=== PATIENT | male | born 1970 | race American Indian/Alaskan Native ===

== ENCOUNTER 2019-03-31 14:30 | Emergency (ER) | payer SELFPAY ==
--- NOTE | 2019-03-31 14:46 | Emergency Department Report ---
Blank Doc - Documentation Documentation: 48-year-old male that presents with dysuria and penile discharge This initial assessment/diagnostic orders/clinical plan/treatment(s) is/are subject to change based on patient's health status, clinical progression and re- assessment by fellow clinical providers in the ED. Further treatment and workup at subsequent clinical providers discretion. Patient/guardians urged not to elope from the ED as their condition may be serious if not clinically assessed and managed. Initial orders include: 1- Patient sent to [facility] for further evaluation and treatment 2- GC/UA
[2019-03-31 14:47] VITALS: BP 175/113
[2019-03-31 15:18] LABS: Bilirubin,Urine NEG (Negative); Blood,Urine SM (Negative); Color,Urine Yellow (Yellow); Protein,Urine <15 mg/dL mg/dL (Negative); Urobilinogen,Urine < 2.0 mg/dL (<2.0)
--- NOTE | 2019-03-31 19:36 | Emergency Department Report ---
Chief Complaint: Urogenital-Male Stated Complaint: STD/GENTIALS AREA GOMEZ Time Seen by Provider: 03/31/19 14:44 - HPI History of Present Illness: 48-year-old -Malag[place] male presents to the emergency room complaining of penile discharge and tingling when he urinates. Patient reports he is sexually active 10 women in the last month unprotected. Patient reports he has a past medical history of hypertension. Patient denies any fever chills no abdominal pain no nausea no vomiting no chest pain shortness of breathing. Patient denies any testicular pain testicular swelling no blood in the urine - ROS Review of Systems: See HPI - Exam Vital Signs: Vital Signs 03/31/19 14:44 Temperature 98.5 F Pulse Rate 94 H Respiratory 15 Rate Blood Pressure 175/113 [Left] O2 Sat by Pulse 97 Oximetry Physical Exam: Patient is alert and oriented 3 no acute distress nontoxic in appearance. MSE screening note: Focused history and physical exam performed. Due to findings the following was ordered: Discussed with patient that he needs to follow up at the health department for complete STD screening and treatment. Discussed with patient that he has glucose in his urine and he needs to follow-up with the primary care provider. Patient be referred to [facility]. ED Medical Decision Making - Medical Decision Making 48-year-old -Malag[place] male presents to the emergency room complaining of penile discharge and tingling when he urinates. Patient reports he is sexually active 10 women in the last month unprotected. Patient reports he has a past medical history of hypertension. Patient denies any fever chills no abdominal pain no nausea no vomiting no chest pain shortness of breathing. Discussed patient he needs to follow up at the health department for complete STD screening and testing. I also discussed with patient that he needs to follow up with her primary care provider for further evaluation of glucose in urine ED Disposition for MSE Clinical Impression: Penile discharge Disposition: Z- MED SCREENING EXAM-LEFT Is pt being admited?: No Does the pt Need Aspirin: No Condition: Stable Additional Instructions: Follow-up at the health department for complete STD screening and testing and treatment. Follow-up with outside Medical Center for evaluation of glucose in the urine. Referrals: PRIMARY CARE, [Primary Care Provider] - 3-5 Days [facility] [Outside] - 3-5 Days [facility] [Outside] - 3-5 Days [facility] [Outside] - 3-5 Days [facility] [Outside] - 3-5 Days [facility] [Outside] - 3-5 Days
== END 2019-03-31 19:44 | disposition left against medical advice (07) ==
LOC: ED 14:30
DX: R36.9 Urethral discharge, unspecified (principal); I10 Essential (primary) hypertension
CPT/HCPCS: 81001; 87086

== ENCOUNTER 2021-06-16 02:30 | Emergency (ER) | payer SELFPAY ==
--- NOTE | 2021-06-16 03:14 | Emergency Department Report ---
ED Chest Pain HPI - General Chief Complaint: Chest Pain Stated Complaint: CHEST PAIN Time Seen by Provider: 06/16/21 03:00 Source: patient Mode of arrival: Ambulatory Limitations: No Limitations - History of Present Illness Initial Comments: 51-year-old male, history of diabetes, hypertension, renal insufficiency, presents to ED with chest pain x3 days. Patient states pain is right-sided, worse with cough and also with exertion. Patient reports associated shortness of breath. Patient denies any pleuritic pain. He denies any nausea or vomiting, diaphoresis, leg pain or swelling. Patient denies fever. Patient reports tobacco and alcohol use. States he stopped smoking cigarettes 2 weeks ago. He denies any drug use. He denies any family history of cardiovascular disease. Patient reports he received his [employer] COVID-19 vaccine approximately 1 month ago. MD Complaint: chest pain -: days(s) (3) Onset: during rest Pain Location: right chest Pain Radiation: none Severity: moderate Severity scale (0 -10): 6 Quality: aching Consistency: intermittent Improves With: nothing Worsens With: exertion, other (cough) re: dyspnea. denies: nausea, vomting, diaphoresis Other Symptoms: cough. denies: fever, leg swelling Treatments Prior to Arrival: none - Related Data Allergies Allergy/AdvReac Type Severity Reaction Status Date / Time No Known Allergies Allergy Unverified 03/31/19 14:34 Heart Score - HEART Score History: Slightly suspicious EKG: Non-specific Age: 45-65 Risk factors: > 3 risk factors or hx of atherosclerotic disease Troponin: 1-3x normal limit HEART Score: 5 - EKG Read Time Time EKG Completed: 02:40 EKG Read Time: 02:54 ED Review of Systems ROS: Stated complaint: CHEST PAIN Other details as noted in HPI Comment: All other systems reviewed and negative Constitutional: denies: chills, fever Respiratory: cough, shortness of breath Cardiovascular: chest pain Gastrointestinal: denies: nausea, vomiting Musculoskeletal: other (Denies leg pain or) ED Past Medical Hx - Past Medical History Hx Hypertension: Yes - Social History Smoking Status: Never Smoker Substance Use Type: None ED Physical Exam - General Limitations: No Limitations General appearance: alert, in no apparent distress - Head Head exam: Present: atraumatic, normocephalic - Eye Eye exam: Present: normal appearance, EOMI - ENT ENT exam: Present: mucous membranes moist - Neck Neck exam: Present: normal inspection - Respiratory Respiratory exam: Present: normal lung sounds bilaterally. Absent: respiratory distress - Cardiovascular Cardiovascular Exam: Present: regular rate, normal rhythm - GI/Abdominal GI/Abdominal exam: Present: soft. Absent: distended, tenderness - Extremities Exam Extremities exam: Present: normal inspection. Absent: pedal edema, calf te nderness - Neurological Exam Neurological exam: Present: alert, oriented X3 - Psychiatric Psychiatric exam: Present: normal affect, normal mood - Skin Skin exam: Present: warm, dry, intact, normal color ED Course Vital Signs 06/16/21 06/16/21 06/16/21 02:35 02:58 03:00 Temperature 98.7 F Pulse Rate 90 93 H Respiratory 22 18 Rate Blood Pressure Blood Pressure 181/110 [Right] O2 Sat by Pulse 97 99 99 Oximetry 06/16/21 06/16/21 06/16/21 03:05 03:15 03:31 Temperature Pulse Rate 94 H 91 H 92 H Respiratory 20 15 13 Rate Blood Pressure 177/112 146/103 Blood Pressure [Right] O2 Sat by Pulse 99 99 99 Oximetry 06/16/21 06/16/21 06/16/21 03:45 04:01 04:15 Temperature Pulse Rate 93 H 91 H 94 H Respiratory 18 25 H 13 Rate Blood Pressure 185/115 178/112 187/127 Blood Pressure [Right] O2 Sat by Pulse 98 100 98 Oximetry 06/16/21 06/16/21 06/16/21 04:31 04:45 05:01 Temperature Pulse Rate Respiratory Rate Blood Pressure 185/108 179/107 178/107 Blood Pressure [Right] O2 Sat by Pulse 99 97 95 Oximetry 06/16/21 06/16/21 06/16/21 05:15 05:30 05:45 Temperature Pulse Rate 92 H 94 H Respiratory 19 14 Rate Blood Pressure 170/100 168/99 Blood Pressure [Right] O2 Sat by Pulse 95 95 98 Oximetry 06/16/21 06/16/21 06/16/21 06:01 06:15 06:30 Temperature Pulse Rate 94 H 90 91 H Respiratory 13 12 9 L Rate Blood Pressure 151/84 176/92 156/102 Blood Pressure [Right] O2 Sat by Pulse 99 91 Oximetry ED Medical Decision Making - Lab Data Result diagrams: 06/16/21 03:45 06/16/21 03:45 - EKG Data -: EKG Interpreted by Me EKG shows normal: sinus rhythm, axis, intervals, QRS complexes Rate: normal - EKG Data Interpretation: nonspecific ST-T wave chinmay, other (Anterolateral T wave inversions) - Radiology Data Radiology results: report reviewed, image reviewed - Medical Decision Making 51-year-old male presents to ED with chest pain. EKG shows some anterolateral T wave inversions. Patient reports chest pain with cough, but also with exertio n. He reports associated shortness of breath. O2 sats are normal. Patient is afebrile. Chest x-ray shows mild cardiomegaly. D-dimer elevated. Unable to obtain CTA due to patient's renal insufficiency. VQ scan ordered, however they will not be here until 8 AM. I have explained this to patient and he agrees to wait. Troponin slightly elevated 0.05, unclear if this is due to renal function, no previous labs for comparison. Patient will be signed out to Dr. Vance to follow-up on results and dispo. - Differential Diagnosis Pneumonia, CHF, PE, ACS Critical care attestation.: If time is entered above; I have spent that time in minutes in the direct care of this critically ill patient, excluding procedure time. ED Disposition Clinical Impression: Elevated troponin, Renal insufficiency, Uncontrolled hypertension, Acute chest pain Disposition: 07 LEFT AGAINST MEDICAL ADVICE Is pt being admited?: No Condition: Undetermined Instructions: Chest Pain (ED), Hypertension (ED) Referrals: PRIMARY CARE, [Primary Care Provider] - 3-5 Days Forms: AMA Form
--- NOTE | 2021-06-16 03:40 | XRay Report ---
CHEST 1 VIEW 06/16/2021 3:20 AM INDICATION / CLINICAL INFORMATION: Shortness of breath. COMPARISON: None available. FINDINGS: SUPPORT DEVICES: None. HEART / MEDIASTINUM: There is mild cardiomegaly with a left ventricular configuration. Pulmonary vasc ulature is normal for technique. There is mild aortic tortuosity without aneurysm. LUNGS / PLEURA: No significant pulmonary or pleural abnormality. No pneumothorax. ADDITIONAL FINDINGS: No significant additional findings. IMPRESSION: Mild cardiomegaly without acute pulmonary disease. Signer Name: Andres Chapin MD Signed: 06/16/2021 3:36 AM Workstation Name: [id number]
[2021-06-16 04:04] LABS: Eosinophils # (Auto) 0.2 K/mm3 (0.0-0.4); Eosinophils % (Auto) 4.3 % (0.0-4.3); Hematocrit 44.9 % (35.5-45.6); Lymphocytes # (Auto) 1.4 K/mm3 (1.2-5.4); Mean Corpuscular HGB Conc 31 % (32-34); Mean Corpuscular Volume 79 fl (84-94); Monocytes # (Auto) 0.5 K/mm3 (0.0-0.8); Platelet Count 202 K/mm3 (140-440); Red Blood Count 5.65 M/mm3 (3.65-5.03); Red Cell Distribution Width 15.9 % (13.2-15.2)
[2021-06-16 04:11] LABS: INR 0.81 (0.87-1.13); Partial Thromboplastin Time 27.7 Sec. (24.2-36.6)
[2021-06-16 04:58] LABS: Alanine Aminotransferase 32 units/L (7-56); Albumin 3.7 g/dL (3.9-5); BUN/Creatinine Ratio 10; Blood Urea Nitrogen 27 mg/dL (9-20); Calcium 8.9 mg/dL (8.4-10.2); Hemolysis Index 13
[2021-06-16 05:00] LABS: Bilirubin,Direct < 0.2 mg/dL (0-0.2)
[2021-06-16] MEDS ORDERED: hydrALAZINE 20 MG/1 ML INJ IV ONE (05:08)
[2021-06-16 06:38] VITALS: BP 156/102
[2021-06-16 06:58] LABS: Chol/HDL Ratio 5.18 %; HDL Cholesterol 27 mg/dL (40-59); LDL Cholesterol,Direct 75 mg/dL (50-130)
== END 2021-06-16 09:09 | disposition left against medical advice (07) ==
LOC: ED 02:30
DX: R74.8 Abnormal levels of other serum enzymes (principal); N28.9 Disorder of kidney and ureter, unspecified; I10 Essential (primary) hypertension; R07.9 Chest pain, unspecified
CPT/HCPCS: 36415; 71045; 80048; 80061; 80076; 83880; 84484; 85025; 85379; 85610; 85730; 93005; 96374; 99284; J0360

== ENCOUNTER 2021-08-03 03:17 | Emergency (ER) | payer SELFPAY | END 2021-08-03 03:20 | disposition left against medical advice (07) | LOC: ED 03:17 | DX: Z00.8 Encounter for other general examination (principal); Z53.21 Procedure and treatment not carried out due to patient leaving prior to being seen by health care provider ==

== ENCOUNTER 2022-03-11 02:16 | Emergency (ER) | payer SELFPAY ==
[2022-03-11 02:45] VITALS: BP 194/109
== END 2022-03-11 08:24 | disposition left against medical advice (07) ==
LOC: ED 02:16
DX: R06.02 Shortness of breath (principal); R60.0 Localized edema; Z53.21 Procedure and treatment not carried out due to patient leaving prior to being seen by health care provider